=== PATIENT | female | born 1955 | race Caucasian/White ===

== ENCOUNTER 2022-12-08 13:16 | Outpatient (AMB) | payer MEDICARE, SELFPAY ==
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
[2022-12-08 13:26] VITALS: PULSE 85; O2SAT 96; BMI 20.5
== END 2022-12-08 14:28 | disposition home or self-care (01) ==
PROVIDERS: Visit Provider Nurse Practitioner Family
DX: M54.6 Pain in thoracic spine (principal); M54.2 Cervicalgia
CPT/HCPCS: 99204

== ENCOUNTER → 2022-12-08 13:16 | Outpatient (BNVA) | payer MEDICARE, SELFPAY | PROVIDERS: Visit Provider Nurse Practitioner Family | DX: M54.6 Pain in thoracic spine (principal); M54.2 Cervicalgia | CPT/HCPCS: 99202 ==

== ENCOUNTER 2023-03-23 10:45 | Outpatient (AMB) | payer MEDICARE, SELFPAY ==
--- NOTE | 2023-03-23 11:12 | MHC.OFFVIS ---
Intake Vital Signs 03/23/23 11:16 Height 5 ft 5 in BP 128/78 Blood Pressure Location Rt brachial Position Sitting Pulse 88 Pulse Source Pulse Oximeter Pulse Oximetry (%) 99 Oxygen Delivery Method Room Air Intake Visit Reasons: 3m f/u parasthesia - LVM Intake Note: Patient presents for 3 month follow up.I don't have the numbness and tingling anymore I have some stiffness in my neck. I'm doing better though. Allergies No Known Allergies Allergy (Verified 03/23/23 11:14) HPI HPI Comments History of Present Illness Details 67-yr-old female presents for f/u visit. Pt denies any significant interval medical changes. Pt states she is feeling better. She is walking more and doing more upper body stretches and ROM. She is no longer having RUE paresthesias. Sometimes may have a mild RUE discomfort. Can have some transient cervical discomfort w/ cervical flexion, but otherwise no usual neck pain or shooting neck pain. No UE weakness. She has used the cyclobenzaprine sparingly- helped but does not to take too often. 12/09/22?, XR SPINE THORACIC 2 views, XR SPINE CERVICAL 4 OR 5 VIEWS COMPARISON: None Available. FINDINGS: Cervical spine: The alignment is anatomic. There is no evidence of an acute fracture. There is C5-6 and C6-7 intervertebral disc space narrowing. Odontoid process and lateral masses are unremarkable. Neural foramina are patent bilaterally. Normal flexion and extension. Prevertebral soft tissues are within normal limits. Thoracic spine: The alignment is anatomic. Vertebral body height is normal without compression deformity. Visualized disc spaces are unremarkable. IMPRESSION: 1.No acute cervical or thoracic spine abnormality. 2.C5-6 and C6-7 degenerative disc disease. 4 views of the cervical spine, including flexion and extension. XR XR SPINE CERVICAL 4 OR 5 VIEWS w/ flex/ext FINDINGS: The C7 vertebral body is obscured on the lateral views. There is straightening of the cervical lordosis. Mild anterolisthesis is present at C4-C5. There is also mild anterolisthesis of C2-C3 on flexion only, which reduces on neutral and extension views. There is multilevel degenerative disc height loss along with facet and uncovertebral spurring. Precervical soft tissues are unremarkable. At least 2 metallic cerclage wires project over the calvarium, possibly related to prior craniotomy. Correlate with clinical history. [facility] Medical History (Updated 03/23/23 @ 18:31 by FELIPE Zelaya) Anxiety HTN (hypertension) HLD (hyperlipidemia) Nicotine dependence Macular degeneration History of fracture of forearm History of arteriovenous malformation (AVM) Surgical History H/O brain surgery Hx of appendectomy Hx of tonsillectomy Family History Father Diabetes Heart disease CHF (congestive heart failure) Mother Cancer Sister Asthma Social History Alcohol intake: current Patient Tobacco Use Status: Never used Tobacco Review of Systems Const All systems reviewed & are unremarkable except as noted in HPI and below Physical Exam Vital Signs: Last Vital Signs Pulse 88 03/23/23 11:16 BP 128/78 03/23/23 11:16 Pulse Ox 99 03/23/23 11:16 Oxygen Delivery Method Room Air 03/23/23 11:16 Const General: cooperative and no acute distress Orientation/consciousness: patient oriented x3 HEENT Head: Yes normocephalic Resp Effort & Inspection: normal respiratory effort and able to speak in complete sentences Neuro Other: Bilateral posterior cervical tightness. General: patient oriented x3, gait normal and CN's II-XI intact bilaterally Cognition (Neuro): normal cognition Motor exam (neuro): 5/5 motor strength present throughout Deep tendon reflexes (DTR's): Right triceps reflex intensity grade: 2+, Left triceps reflex intensity grade: 2+, Rt Biceps (C5, C6): 2+, Left biceps reflex intensity grade: 2+, Right brachioradialis reflex intensity grade: 2+, Left brachioradialis reflex intensity grade: 2+, Right patellar reflex intensity grade: 2+ and Left patellar reflex intensity grade: 2+ Psych Appearance: grossly normal Mental Status: mental status grossly normal Speech and movement: Normal speech and movement present Affect: normal affect Attitude: cooperative Thought process: Normal thought process present Thought content: Normal thought content present Insight: Good insight present (Psych) Judgement: Good judgement present (Psych) Assessment & Plan Assessment & Plan (1) Cervicalgia: Code(s): M54.2 - Cervicalgia (2) Thoracic back pain: Code(s): M54.6 - Pain in thoracic spine (3) Degenerative disc disease, cervical: Code(s): M50.30 - Other cervical disc degeneration, unspecified cervical region Plan Reviewed c-spine and t-spine XR reports and images- straightening of the cervical lordosis. mild anterolisthesis is present at C4-C5. mild anterolisthesis of C2-C3 on flexion only, which reduces on neutral and extension views. multilevel degenerative disc height loss along with facet and uncovertebral spurring. Continue cervical and upepr body ROM and stretching exercises. Avoid prolonged cervical flexion. May use Cyclobenzaprine prn. f/u in 6 months or sooner prn. Coding Level of Care Code Est Pt Level 4 (66555) Diagnoses Cervicalgia M54.2 Thoracic back pain M54.6 Degenerative disc disease, cervical M50.30
[2023-03-23 11:16] VITALS: BP 128/78; PULSE 88; O2SAT 99
== END 2023-03-23 11:45 | disposition home or self-care (01) ==
PROVIDERS: PCP Hospitalist; Visit Provider Nurse Practitioner Family
DX: M54.6 Pain in thoracic spine (principal); M50.30 Other cervical disc degeneration, unspecified cervical region
CPT/HCPCS: 99214

== ENCOUNTER → 2023-03-23 10:45 | Outpatient (BNVA) | payer MEDICARE, SELFPAY | PROVIDERS: PCP Hospitalist; Visit Provider Nurse Practitioner Family | DX: M54.2 Cervicalgia (principal); M54.6 Pain in thoracic spine; M50.30 Other cervical disc degeneration, unspecified cervical region | CPT/HCPCS: 99212 ==